=== PATIENT | male | born 1985 | race Caucasian/White ===

== ENCOUNTER 2021-02-25 18:00 | Emergency (ER) | payer OTHER, SELFPAY ==
[2021-02-25 18:15] VITALS: BP 125/90; PULSE 55; RESP 16; TEMP 37; O2SAT 99
--- NOTE | 2021-02-25 18:31 | ED.ABDPAIN ---
HPI - Abdominal Pain General Chief Complaint: Abdominal Pain Stated Complaint: abd pain Time Seen by Provider: 02/25/21 18:31 Source: patient and RN notes reviewed Mode of arrival: ambulatory Limitations: no limitations History of Present Illness HPI narrative: 35-year-old male presents to the [facility] with complaints of nausea and vomiting since eating lasagna, potato salad, green beans and carrot cake at lunch today. Patient denies any abdominal pain just feels constantly nauseous since eating. No treatment prior to arrival. Denies chest pain or shortness of breath. Denies any significant medical or surgical history Related Data Allergies Allergy/AdvReac Type Severity Reaction Status Date / Time Penicillins Allergy Unknown Unknown Verified 02/25/21 18:24 Review of Systems Review of Systems: All systems reviewed & are unremarkable except as noted in HPI and below Constitutional: Constitutional: Reports no additional constitutional complaints, Denies chills and Denies fever(s) Eyes: Eyes: Reports no additional eye complaints ENT: Reports system reviewed and no additional complaints, except as documented Cardiovascular: Cardiovascular: Reports no additional cardiovascular complaints, Denies chest pain and Denies dyspnea Respiratory: Respiratory: Reports no additional respiratory complaints, Denies cough, Denies dyspnea and Denies wheezing Gastrointestinal: Gastrointestinal: Reports as per HPI, Denies abdominal pain, Denies diarrhea, Reports nausea and Reports vomiting Musculoskeletal: Musculoskeletal: Reports no additional musculoskeletal complaints Integumentary/Breasts: Skin/Breast: Reports system reviewed and no additional complaints, except as docu Neurologic: Reports system reviewed and no additional complaints, except as documented Psychiatric: Psychiatric: Reports no additional psychiatric complaints Allergic/Immunologic: Allergic/Immunologic: Reports no additional allergic/immunologic complaints and Denies wheezing PMFSH Past Medical History Medical History (Updated 02/25/21 @ 19:23 by Elle Owens) No significant medical problems Surgical History Surgical History (Updated 02/25/21 @ 19:23 by Elle Owens) No history of previous surgery Comments At the time of my signature, I reviewed and agree with the nursing past medical, surgical, social, and family history. There is no relevant family history pertinent to the patient complaint. Exam Const: General: healthy appearing, no acute distress and alert Nutritional Appearance: well nourished Orientation/consciousness: patient oriented x3 Limitations: no limitations HENMT: Head: normal to inspection Ears: external ears normal, TM's normal bilaterally and EAC's normal Eyes: Pupils: Equal, round and reactive pupils present Neck: Neck: normal visual inspection, no lymphadenopathy and no meningeal signs Chest: Chest palpation & inspection: normal inspection of the chest Resp: Effort & Inspection: normal respiratory effort and no use of accessory muscles Auscultation: clear to auscultation bilaterally, no crackles, no rales, no rhonchi and no wheezes Cardio: Rate: regular rate Rhythm: regular rhythm GI: GI Palp: Yes Soft to palpation, No Tenderness to palpation present (GI), No Guarding due to palpation present (GI) and No Rebound tenderness present Back/Spine/Pelvis: Back: no CVA tenderness Skin: General skin exam: normal color Rashes: no rashes Wounds: no wounds Neuro: General: patient oriented x3, moves all extremities, no meningeal signs and no focal motor deficits Cranial nerves: Yes Equal, round and reactive pupils present Speech: normal speech Gait exam (Neuro): Normal gait present Extrem: General: normal to inspection Psych: Appearance: grossly normal and well kempt Mental Status: mental status grossly normal Affect: normal affect Attitude: cooperative Thought content: Yes Normal thought content present Course Course
== END 2021-02-25 18:50 | disposition home or self-care (01) ==
PROVIDERS: Emergency Provider Nurse Practitioner
DX: K52.9 Noninfective gastroenteritis and colitis, unspecified (principal)
CPT/HCPCS: 99213; G0463

== ENCOUNTER 2021-02-27 12:35 | Emergency (ER) | payer OTHER, SELFPAY ==
[2021-02-27 12:37] VITALS: BP 126/65; PULSE 100; RESP 17; TEMP 36.3; O2SAT 100
--- NOTE | 2021-02-27 14:20 | ED.GENADULT ---
HPI - General Adult General Chief complaint: Nausea/Vomiting/Diarrhea Stated complaint: vomiting Time Seen by Provider: 02/27/21 14:04 History of Present Illness HPI narrative: 35-year-old male with no significant past medical history presents to the emergency department for evaluation of nausea vomiting and epigastric pain. Patient states that his symptoms began on Wednesday. Patient states after he ate he had onset of nausea and vomiting. Patient states his emesis was primarily his food, denies blood in the emesis. Patient states symptoms did improve on Wednesday he states he followed a bland diet. Patient reports he did drink Gatorade and was feeling well enough to help a family member move some furniture. Patient states Wednesday night he did have tacos and then had onset of the epigastric burning and nausea again. Patient did not take any medications for the symptoms. Patient states that the symptoms did resolve approximately 7 AM this morning. Upon arrival to the department patient denies any current complaints. Patient does admit to smoking at least a pack of cigarettes a day. Patient denies frequent ibuprofen use. Related Data Allergies Allergy/AdvReac Type Severity Reaction Status Date / Time Penicillins Allergy Unknown Unknown Verified 02/27/21 12:39 Review of Systems Review of Systems: CONSTITUTIONAL: Denies fever, chills, or sweats. EYES: Denies visual changes, redness, or discharge. ENT: Denies rhinorrhea, congestion, sore throat, or otalgia. CARDIOVASCULAR: Denies chest pain, palpitations, or edema. RESPIRATORY: Denies cough or dyspnea. GASTROINTESTINAL: Burning epigastric pain with intermittent nausea and vomiting. Patient denies any complaint at this time. GENITOURINARY: Denies dysuria or hematuria. SKIN: Denies rash or itching. MUSCULOSKELETAL: Denies back pain, joint pain, or myalgia. NEUROLOGIC: Denies headache, numbness, or weakness. PSYCHIATRIC: Denies anxiety or depression. PMFSH Past Medical History Medical History (Updated 02/27/21 @ 14:29 by Moustapha Childers MD) No significant medical problems Surgical History Surgical History (Updated 02/25/21 @ 19:23 by Elle Owens) No history of previous surgery Exam Narrative: APPEARANCE: Well appearing, no pain in distress, well-nourished. HEAD: normocephalic, atraumatic. EYES: PERRLA/EOMI, conjunctivae clear. NECK: Supple. No adenopathy, no masses. RESPIRATORY: Airway patent, respirations nonlabored. Clear to auscultation bilaterally, no rales, rhonchi, wheezing. CARDIOVASCULAR: Regular rate and rhythm without murmurs rubs or gallops. ABDOMINAL: Soft, nontender, nondistended, normal bowel sounds MUSCULOSKELETAL: Moves all extremities. Strength/ROM intact, No edema, No calf tenderness. NEURO: Alert. Cranial nerves II through XII intact. Good gait. Good coordination SKIN: Warm, dry. Normal Color PSYCHIATRIC: Normal affect/mood. Course Course Emergency Course: Patient was upset on the plan for labs. Patient was also updated on treatment for home including following a bland diet, omeprazole for 2 weeks, limit his alcohol and limit NSAIDs. Patient was updated on the results of his labs. Labs are within normal limits. Once again patient was educated on treatment for home and on the importance of close follow-up with primary care physician and potentially with GI. Patient was clinically stable at time of discharge from emergency department. Vital Signs Vital signs: Vital Signs Temperature 97.3 F L 02/27/21 12:37 Pulse Rate 100 02/27/21 12:37 Respiratory Rate 17 02/27/21 12:37 Blood Pressure 126/65 02/27/21 12:37 Pulse Oximetry 100 02/27/21 12:37 Temperature 97.3 F L 02/27/21 12:37 Pulse Rate 100 02/27/21 12:37 Respiratory Rate 17 02/27/21 12:37 Blood Pressure 126/65 02/27/21 12:37 Pulse Oximetry 100 02/27/21 12:37 Medical Decision Making Vital Signs Vital Signs: Vital Signs Temperature 97.3 F L 01
[2021-02-27] MEDS: METOCLOPRAMIDE HCL INJ 10 MG/2 ML VIAL IV PUSH (14:21)
[2021-02-27] MEDS: SODIUM CHLORIDE 0.9% IV 1,000 ML 999 ML IV CONT (14:21)
[2021-02-27 14:23] LABS: Basophils Percent Auto 0.3 % (0.2-1.2); Hematocrit 44.6 % (42.0-52.0); Hemoglobin 15.4 g/dL (14.0-18.0); Immature Granulocyte Absolute 0.03 K/mm3 (0.00-0.031); Immature Granulocyte Percent A 0.3 % (0-0.5); Lymphocytes Absolute Auto 1.45 K/mm3 (0.9-3.2); Lymphocytes Percent Auto 13.5 % (18.3-44.2); Mean Corpuscular HGB Conc 34.5 g/dl (32-36); Mean Corpuscular Hemoglobin 30.4 pg (26-34); Mean Platelet Volume 9.9 fl (7.4-10.4); Neutrophils Absolute Auto 8.2 K/mm3 (1.3-6.7); Neutrophils Percent Auto 76.9 % (45.5-73.1); Platelet Count Result 259 k/mm3 (150-375); Red Blood Count 5.07 M/mm3 (4.6-6.20); Red Cell Distribution Width 12.5 % (11.5-14.5); White Blood Count 10.7 K/mm3 (4.5-10.0)
[2021-02-27 15:00] LABS: Alanine Aminotransferase 19 U/L (4-50); Albumin Level 4.3 g/dL (3.5-5.1); Alkaline Phosphatase 55 U/L (38-126); Anion Gap 10 mmol/L (8-16); Aspartate Amino Transferase 28 U/L (17-59); Bilirubin,Total 0.6 mg/dL (0.2-1.3); Blood Urea Nitrogen 9 mg/dL (9-20); Carbon Dioxide 28 mmol/L (22-30); Chloride 99 mmol/L (98-107); Estimated CRCL calculation 152 ml/min; Estimated Glomerular Filt Rate > 60; Glucose 113 mg/dL (65-110); Potassium 3.5 mmol/L (3.4-5.0); Sodium 137 mmol/L (137-145)
== END 2021-02-27 15:15 | disposition home or self-care (01) ==
LOC: ANHED 14:50
PROVIDERS: Emergency Provider Emergency Medicine; PCP Pediatrics
DX: K29.00 Acute gastritis without bleeding (principal); R11.2 Nausea with vomiting, unspecified
CPT/HCPCS: 36415; 80053; 85025; 96361; 96374; 99284; J2765; J7030

== ENCOUNTER 2023-05-25 05:59 | Emergency (ER) | payer OTHER, SELFPAY ==
[2023-05-25 07:10] VITALS: BP 123/68; PULSE 63; RESP 12; TEMP 36.7; O2SAT 99
[2023-05-25 07:34] LABS: Basophils Absolute Auto 0.1 K/mm3 (0.0-0.1); Basophils Percent Auto 0.7 % (0.2-1.2); Eosinophils Absolute Auto 0.2 K/mm3 (0-0.3); Eosinophils Percent Auto 2.4 % (0-4.4); Hematocrit 42.9 % (42.0-52.0); Hemoglobin 14.2 g/dL (14.0-18.0); Immature Granulocyte Absolute 0.02 K/mm3 (0.00-0.031); Immature Granulocyte Percent A 0.3 % (0-0.5); Lymphocytes Absolute Auto 1.43 K/mm3 (0.9-3.2); Lymphocytes Percent Auto 21.1 % (18.3-44.2); Mean Corpuscular HGB Conc 33.1 g/dl (32-36); Mean Corpuscular Hemoglobin 29.2 pg (26-34); Mean Corpuscular Volume 88.1 fl (80-100); Mean Platelet Volume 10.2 fl (7.4-10.4); Monocytes Absolute Auto 0.9 K/mm3 (0.1-0.6); Neutrophils Absolute Auto 4.2 K/mm3 (1.3-6.7); Neutrophils Percent Auto 62.5 % (45.5-73.1); Platelet Count Result 220 k/mm3 (150-375); Red Blood Count 4.87 M/mm3 (4.6-6.20); Red Cell Distribution Width 12.3 % (11.5-14.5); White Blood Count 6.8 K/mm3 (4.5-10.0)
[2023-05-25 07:41] LABS: Appearance Urine Clear (Clear); Bacteria Urine None Seen /hpf; Bilirubin Urine Negative (Negative); Blood Urine 1+ (Negative); Color Urine Yellow (Yellow); Glucose Urine UA Negative (Negative); Ketones Urine Negative (Negative); Leukocyte Esterase Ur Negative LEU/UL (Negative); Nitrate Urine Negative (Negative); Non Pathogenic Casts 0-2; Protein Urine Negative (Negative); Specific Grav Ur 1.008 (1.001-1.035); Squamous Epithelial Cell Urine None Seen /hpf (Few); Urobilinogen Urine 0.2 mg/dL (<2.0); WBC Urine 0-5 /hpf (0-3)
[2023-05-25 07:44] LABS: Ethanol < 10 mg/dL (<10)
[2023-05-25 07:49] LABS: Add Urine Microscopic? YES
[2023-05-25 07:50] LABS: Alanine Aminotransferase 18 U/L (6-50); Albumin Level 4.3 g/dL (3.5-5.1); Alkaline Phosphatase 42 U/L (38-126); Anion Gap 6 mmol/L (4-12); Aspartate Amino Transferase 24 U/L (17-59); Bilirubin,Total 0.6 mg/dL (0.2-1.3); Blood Urea Nitrogen 13 mg/dL (9-20); Calcium 9.3 mg/dL (8.4-10.2); Carbon Dioxide 29 mmol/L (22-30); Chloride 106 mmol/L (98-107); Estimated CRCL calculation 122 ml/min; Estimated Glomerular Filt Rate > 60; Glucose 106 mg/dL (65-110); Potassium 3.8 mmol/L (3.4-5.0); Sodium 141 mmol/L (137-145)
[2023-05-25 07:51] LABS: Amphetamine Screen Urine Negative (Negative); Barbiturate Screen Urine Negative (Negative); Benzodiazepines Screen Urine Negative (Negative); Cannabinoid Screen Urine Negative (Negative); Cocaine Screen Urine Negative (Negative); Methadone Screen Urine Negative (Negative); Opiate Screen Urine Negative (Negative); Phencyclidine Screen Urine Negative (Negative)
[2023-05-25 08:00] VITALS: BP 116/61; PULSE 59; RESP 12; TEMP 36.6; O2SAT 99
[2023-05-25 08:01] LABS: Troponin I < 0.012 ng/mL (0.000-0.034)
--- NOTE | 2023-05-25 08:28 | ED.GENADULT ---
HPI - General Adult General Chief complaint: Unspecified Stated complaint: i dont know; had a panic attack last week Time Seen by Provider: 05/25/23 07:06 History of Present Illness HPI narrative: Yr old with a history of anxiety disorder presents to the ER with complaints of palpitation, chest discomfort, shortness of breath, tingling sensation since this morning. Patient states that he had a similar episode she ago was seen at [facility] was told it could be marijuana related however since then he has stopped using marijuana patient states that he had the symptoms early this morning however by the time he came to the ER his symptoms resolved Related Data Allergies Allergy/AdvReac Type Severity Reaction Status Date / Time Penicillins Allergy Unknown Unknown Verified 05/25/23 06:02 Review of Systems Review of Systems: All systems reviewed & are unremarkable except as noted in HPI and below Constitutional: Constitutional: Reports no additional constitutional complaints Eyes: Eyes: Reports no additional eye complaints ENT: Reports system reviewed and no additional complaints, except as documented Cardiovascular: Cardiovascular: Reports as per HPI Respiratory: Respiratory: Reports no additional respiratory complaints Gastrointestinal: Gastrointestinal: Reports no additional gastrointestinal complaints Musculoskeletal: Musculoskeletal: Reports no additional musculoskeletal complaints Integumentary/Breasts: Skin/Breast: Reports system reviewed and no additional complaints, except as docu Neurologic: Reports system reviewed and no additional complaints, except as documented Psychiatric: Psychiatric: Reports as per HPI PMFSH Past Medical History Medical History No significant medical problems Surgical History Surgical History No history of previous surgery Exam Narrative: GENERAL: Well-appearing, well-nourished, and in no acute distress. HEAD: Normocephalic, atraumatic. EYES: PERRLA and EOMI. ENT: Nares clear, no rhinorrhea or epistaxis. Mucous membranes moist. NECK: Supple. CHEST: Clear to auscultation. No respiratory distress. HEART: Regular rate and rhythm. No murmur heard. Normal peripheral pulses. ABDOMEN: Soft, nontender, nondistended, normal active bowel sounds. EXTREMITIES: Normal range of motion. No edema. SKIN: Warm, dry, no rash. NEURO: No focal deficits. Alert and oriented x3. PSYCH: Normal mood and affect. Course Course Emergency Course: Patient comfortably resting on the stretcher in no discomfort. Reviewed his EKG and labs but were unremarkable. I did inform the patient and family about his lab work and EKG findings. Recommended him to follow up with his primary doctor Vital Signs Vital signs: Vital Signs Temperature 36.7 C 05/25/23 07:10 Pulse Rate 63 05/25/23 07:10 Respiratory Rate 12 05/25/23 07:10 Blood Pressure 123/68 05/25/23 07:10 Pulse Oximetry 99 05/25/23 07:10 Temperature 36.6 C 05/25/23 08:00 Pulse Rate 83 05/25/23 08:30 Respiratory Rate 14 05/25/23 08:30 Blood Pressure 130/75 05/25/23 08:30 Pulse Oximetry 99 05/25/23 08:30 Medical Decision Making Medical Records Medical records reviewed: Yes I reviewed the external patient's medical records. Vital Signs Vital Signs: Vital Signs Temperature 36.7 C 05/25/23 07:10 Pulse Rate 63 05/25/23 07:10 Respiratory Rate 12 05/25/23 07:10 Blood Pressure 123/68 05/25/23 07:10 Pulse Oximetry 99 05/25/23 07:10 Temperature 36.6 C 05/25/23 08:00 Pulse Rate 83 05/25/23 08:30 Respiratory Rate 14 05/25/23 08:30 Blood Pressure 130/75 05/25/23 08:30 Pulse Oximetry 99 05/25/23 08:30 Lab Data Lab results reviewed: Yes I reviewed the patient's lab results. 05/25/23 07:26 05/25/23 07:26 Labs: Lab Results
[2023-05-25 08:30] VITALS: BP 130/75; PULSE 83; RESP 14; O2SAT 99
--- NOTE | 2023-05-25 08:38 | ECG_ITS ---
Measurements Intervals [place] Rate: 58 P: 76 [place]: 176 QRS: 84 QRSD: 89 T: 77 QT: 417 Avg RR 1026 QTc: 414 QTcB 411 QTcF 413 INTERPRETATIVE STATEMENT SINUS BRADYCARDIA WITH SINUS ARRHYTHMIA BORDERLINE ECG SEE SCANNED COPY FOR SIGNATURE MTDD
== END 2023-05-25 09:04 | disposition home or self-care (01) ==
PROVIDERS: Emergency Provider Family Medicine; PCP Pediatrics
DX: F41.9 Anxiety disorder, unspecified (principal); R07.89 Other chest pain; R00.1 Bradycardia, unspecified
CPT/HCPCS: 36415; 80053; 80307; 81001; 84484; 85025; 93005; 99284

== ENCOUNTER 2023-07-08 12:26 | Emergency (ER) | payer SELFPAY ==
--- NOTE | 2023-07-08 12:28 | ED.ANXIETY ---
HPI - Anxiety General Chief Complaint: Anxiety Stated Complaint: Anxiety Attack Time Seen by Provider: 07/08/23 12:27 Source: patient Mode of arrival: ambulatory Limitations: no limitations History of Present Illness HPI narrative: Anshu is a 37-year-old male patient presenting to the clinic today with complaints of possible anxiety attack/palpitations. He reports this morning he was having some palpitations and was getting anxious about having the palpitations. He denied any chest pain, visual changes, headache, or shortness of breath associated with his initial palpitations however he then became anxious and started to feel overwhelmed. Had similar symptoms 3-4 days ago and took an Ativan and this helped his symptoms. Has been seen in 2 different emergency rooms over the past month for chest pain/palpitations likely due to anxiety.-states all the testing was negative for him having a heart attack. States he was giving Ativan is IV and this helped alleviate his symptoms. He reports that the symptoms have resolved prior to coming into the clinic today. Related Data Allergies Allergy/AdvReac Type Severity Reaction Status Date / Time Penicillins Allergy Unknown Unknown Verified 05/25/23 06:02 Review of Systems Review of Systems: Pertinent positives per HPI. Patient denies any fever, chills, rash, headache, visual changes, dizziness, cough, runny nose, sore throat, shortness of breath, chest pain, palpitations, nausea, vomiting, diarrhea, constipation, abdominal pain, or any urinary issues. PMFSH Past Medical History Medical History No significant medical problems Surgical History Surgical History No history of previous surgery Comments At the time of my signature, I reviewed and agree with the nursing past medical, surgical, social, and family history. There is no relevant family history pertinent to the patient complaint. Exam Narrative: General: Well-developed, well nourished, in no apparent distress Head: Normocephalic, atraumatic. Cardio: Regular rate and rhythm, s1 and s2 normal, no murmur appreciated. Resp: Clear to auscultation bilaterally, no rhonchi, rales, wheezing or rubs. Extremities: No deformity, no edema, no cyanosis, capillary refill less than 2 seconds, peripheral pulses palpable and strong. Integumentary: [place], warm, and dry, intact without lesion, no rashes. Course Course Emergency Course: Portions of this record may have been created with voice recognition software. Level of Care: Express Care Visit Vital Signs Vital signs: Vital Signs Temperature 36.6 C 07/08/23 12:36 Pulse Rate 77 07/08/23 12:36 Respiratory Rate 16 07/08/23 12:36 Blood Pressure 121/84 07/08/23 12:36 Pulse Oximetry 100 07/08/23 12:36 Temperature 36.6 C 07/08/23 12:36 Pulse Rate 77 07/08/23 12:36 Respiratory Rate 16 07/08/23 12:36 Blood Pressure 121/84 07/08/23 12:36 Pulse Oximetry 100 07/08/23 12:36 Vital signs reviewed MDM - Anxiety MDM Narrative Medical decision making narrative: At the time of visit patient is resting comfortably on the exam table. Patient appears to be nontoxic. EKG: EKG shows sinus rhythm with heart rate of 70 beats per minute without any ST elevation, depression, or T-wave inversion. No scanned in comparison EKGs available but last rating of the EKG showed sinus bradycardia with sinus arrhythmia which is now changed to sinus rhythm. Plan: Vital signs are stable and EKG shows normal sinus rhythm with heart rate. Denies any chest pain, shortness breath, or palpitations at this time. Past EKG report and lab work was reviewed. Recommend follow up with PCP to r/o further etiology/causes. Will send in Rx for hydroxyzine to see if this helps. Supportive measures were discussed with the patient and they voiced understanding dis
[2023-07-08 12:36] VITALS: BP 121/84; PULSE 77; RESP 16; TEMP 36.6; O2SAT 100
--- NOTE | 2023-07-08 12:42 | ECG_ITS ---
SEE SCANNED COPY FOR CONFIRMED REPORT MTDD
== END 2023-07-08 13:09 | disposition home or self-care (01) ==
PROVIDERS: Emergency Provider Nurse Practitioner Family
DX: R00.2 Palpitations (principal); F41.9 Anxiety disorder, unspecified
CPT/HCPCS: 93005; 99213; G0463

== ENCOUNTER 2024-04-29 15:50 | Emergency (ER) | payer SELFPAY ==
[2024-04-29 16:05] VITALS: BP 117/73; PULSE 81; RESP 20; TEMP 37.4; O2SAT 99
[2024-04-29] MEDS: FLUORESCEIN SOD 1 MG/STRIP RIGHT EYE (16:20)
[2024-04-29] MEDS: TETRACAINE HCL 0.5% OPHTH SOLN 4 ML BTL RIGHT EYE (16:20)
[2024-04-29] MEDS: DACRIOSE EYE IRRIGATION 118 ML BOTTLE RIGHT EYE (16:20)
--- NOTE | 2024-04-29 16:26 | ED_ITS ---
HPI - Eye Problem General Chief complaint: Eye Problems Stated complaint: Eyes Irritation Time Seen by Provider: 04/29/24 16:26 Source: patient Mode of arrival: ambulatory Limitations: no limitations History of Present Illness HPI Narrative: 38 yo M presents with c/o FB sensation to R eye. R eye painful with light sensitivity and tearing. Was cutting tree that fell down in yard with chainsaw. Was wearing sunglass but worried some wood got into eye. No vision change. All systems reviewed and negative except as noted above. Related Data Allergies Allergy/AdvReac Type Severity Reaction Status Date / Time Penicillins Allergy Unknown Unknown Verified 04/29/24 16:08 Review of Systems Review of Systems: CONSTITUTIONAL: Denies fever, chills, or sweats. EYES: Denies visual changes. Reports R eye redness, clear discharge. ENT: Denies rhinorrhea, congestion, sore throat, or otalgia. CARDIOVASCULAR: Denies chest pain, palpitations, or edema. RESPIRATORY: Denies cough or dyspnea. GASTROINTESTINAL: Denies abdominal pain, nausea, vomiting, or diarrhea. GENITOURINARY: Denies dysuria or hematuria. SKIN: Denies rash or itching. MUSCULOSKELETAL: Denies back pain, joint pain, or myalgia. NEUROLOGIC: Denies headache, numbness, or weakness. PSYCHIATRIC: Denies anxiety or depression. All other systems reviewed are negative, except as documented in HPI. [facility] Past Medical History Medical History No significant medical problems Surgical History Surgical History No history of previous surgery Social History Social History Substance use type: does not use Comments At time of signature, agree with nursing past medical, surgical, social and family history. There is no relevant family history pertinent to the presenting complaint. Exam Narrative: GENERAL: This is a well-nourished, well-developed patient, in no apparent distress. HEAD: normocephalic, atraumatic. EYES: PERRL. Left Sclera and conjunctiva clear/white. right eye erythematous, clear drainage. Topical anesthetic was instilled with good anesthesia using 1gtt of opth anesthetic agent (tetracaine). Fluorescein stain of the R eye was performed. Corneal abrasion 12 o'clock and 5'oclock. NO FB, ulcer or dendritic lesions. Upper lid was everted and no FB or lesions were noted. Normal saline irrigation eye solution was performed and the patient tolerated the procedure well, no adverse reaction or complications. EARS: External ears normal, auditory canals clear and without drainage, TMs normal without perforation. Hearing grossly intact. NOSE: External nose normal with no obvious nasal discharge, nares without redness, no rhinorrhea. THROAT: Mucous membranes moist, posterior pharynx clear. NECK: Neck supple, non-tender without lymphadenopathy, masses or thyromegaly. CARDIOVASCULAR: Regular rate and rhythm without murmurs, gallops, or rubs. RESPIRATORY: Clear to auscultation. Breath sounds equal bilaterally. No wheezes, rales, or rhonchi. SKIN: warm, Dry, intact with no suspicious lesions or rash, good texture and turgor. NEURO: awake, alert, and oriented to person, place and time. There were no obvious focal neurologic abnormalities. EXTREMITIES: No joint tenderness, effusion, or edema noted. Course Course Level of Care: Express Care Visit Vital Signs Vital signs: Vital Signs Temperature 37.4 C 04/29/24 16:05 Pulse Rate 81 04/29/24 16:05 Respiratory Rate 20 04/29/24 16:05 Blood Pressure 117/73 04/29/24 16:05 Pulse Oximetry 99 04/29/24 16:05 Oxygen Delivery Room Air 04/29/24 16:05 Temperature 37.4 C 04/29/24 16:05 Pulse Rate 81 04/29/24 16:05 Respiratory Rate 20 04/29/24 16:05 Blood Pressure 117/73 04/29/24 16:05 Pulse Oximetry 99 04/29/24 16:05 Oxygen Delivery Room Air 04/29/24 16:05 Reviewed MDM - Eye Problem MDM Narrative Medical decision making narrative: 2 small corneal abrasions noted to right eye. Prescribed erythromycin antibiotic ointment. Recommend follow up with industrial relations specialist if not improving. Please be advised this is a medical document. It is intended for [id number] communication. It is written in medical language and may contain unfamiliar abbreviations or verbiage. Medical documents are intended to carry relevant information, facts as evident, and the clinical opinion of the practitioner at the time of the encounter. This report may have been done utilizing a voice recognition system. Attempts have been made to correct errors. However, there may be uncorrected grammatical, spelling, and recognition errors present. The file time of this note does not necessarily represent the time of service. Discharge Plan Discharge Clinical Impression: Abrasion of cornea, right Qualifiers: Encounter type: initial encounter Qualified Code(s): S05.01XA - Injury of conjunctiva and corneal abrasion without foreign body, right eye, initial encounter Patient Disposition: Home, Self-Care Condition: Stable Instructions: Antibiotic Form, Erythromycin (Into the eye), Corneal Abrasion (ED) Additional Instructions: Use antibiotic ointment as prescribed. Read over discharge instructions on how to place erythromycin ointment. Take Tylenol or ibuprofen every 6-8 hours as needed for pain. May wear sunglasses to help with light sensitivity. Follow-up with industrial relations specialist if symptoms not improving. Patient Language: Amharic Prescriptions: New erythromycin 5 mg/gram (0.5 %) ointment 1 applic RIGHT EYE QID 10 Days Qty: 3.5 0RF No Action hydroxyzine pamoate [Vistaril] 25 mg capsule 25 mg PO TID PRN (Reason: anxiety) 30 Days Qty: 90 0RF Follow-up/Referrals: PHYSICIAN,SAUSAGE STUFFER [Primary Care Provider] - Time of Disposition: 16:24
== END 2024-04-29 16:35 | disposition home or self-care (01) ==
PROVIDERS: Emergency Provider Nurse Practitioner Family
DX: S05.01XA Injury of conjunctiva and corneal abrasion without foreign body, right eye, initial encounter (principal); X58.XXXA Exposure to other specified factors, initial encounter
CPT/HCPCS: 99213; A9270; G0463

== ENCOUNTER 2024-10-19 16:49 | Emergency (ER) | payer SELFPAY ==
--- NOTE | ~2024-10-19 | CT_ITS ---
EXAMINATION: CT BRAIN W/O DATE: 10/19/2024 18:33 INDICATION: Dizziness and lightheadedness TECHNIQUE: Computed tomography (CT) of the head was performed without intravenous contrast. The dose-length product was 681.00 mGy-cm. Automated exposure control and iterative reconstruction technique were employed. COMPARISON: 02/24/2017 FINDINGS: Normal brain parenchymal volume for age. Normal wiseman-white differentiation. No acute intracranial hemorrhage, infarction, mass or mass effect. No ventriculomegaly or midline shift. Midline sagittal images demonstrate a normal corpus callosum, craniovertebral junction and sella turcica. Basilar cisterns are patent. Paranasal sinuses and mastoids are pneumatized. No depressed skull fractures. IMPRESSION: 1. No acute intracranial abnormality. Reviewed, dictated and finalized at location O.
--- NOTE | ~2024-10-19 | XR_ITS ---
EXAMINATION: XR chest 2V 10/19/2024 18:02 INDICATION: Dizziness PROCEDURE: 2 view chest COMPARISON: 02/17/2015 FINDINGS: The lungs are clear. The cardiomediastinal silhouette is within normal limits. There are no pleural effusions. There is no pneumothorax suspected. There is a healed left clavicular fracture. IMPRESSION: 1: NO ACUTE CARDIOPULMONARY DISEASE. Reviewed, dictated and finalized at location O.
--- OUTSIDE RECORDS SUMMARY | 2024-10-19 16:51 | XMS_ITS | Clinical Summary ---
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 Name Role Phone None, Provider MD Primary Care Provider Unavaila ble Allergies Active Allergy Reactions Criticality Noted Date Comments Penicillins Unknown 05/17/2023 Medications No known medications Social History Tobacco Use Types Packs/Day Years Used Date Smoking Tobacco: Former Cigarettes Smokeless Tobacco: Never Tobacco Cessation:Counseling Given: Not Answered Alcohol Use Standard Drinks/Week Comments Not Currently 0 (1 standard drink = 0.6 oz pur e alcohol) Sex and Gender Information Value Date Recorded Sex Assigned at Not on file Legal Sex Male 12:28 PM CDT Gender Identity Not on file Sexual Orientation Not on file Last Filed Vital Signs Vital Sign Reading Time Taken Comments Blood Pressure 115/71 12/15/2023 11:50 AM CDT Pulse 81 12/15/2023 10:50 AM CDT Temperature 36.2 C (97.2 F) 12/15/2023 10:04 AM CDT Respiratory Rate 14 12/15/2023 10:50 AM CDT Oxygen Saturation 99% 12/15/2023 10:50 AM CDT Inhaled Oxygen Concentration - - Weight 72.6 kg (160 lb) 12/15/2023 10:04 AM CDT Height 182.9 cm (6') 12/15/2023 10:04 AM CDT Body Mass Index 21.7 12/15/2023 10:04 AM CDT Plan of Treatment Health Maintenance Due Date Last Done Comments Annual Physical 10/01/1990 DTaP, Tdap and Td Vaccines (6 - Tdap) 09/21/2001 09/20/2001, 10/03/1991, 03/09/1990, Additional history exists Hepatitis C 10/01/2005 HPV Vaccines (1 - 3-dose SCDM series) 10/01/2014 COVID-19 Vaccine ( season) 2023 Hepatitis B Vaccines Completed 11/12/1997, 02/01/1997, 01/01/1997 Meningococcal B Vaccine Aged Out No l onger eligible based on patient's age to complete this topic Meningococcal Vaccine Aged Out No ricky masood eligible based on patient's age to complete this topic Pneumococcal Vaccine: Pediatrics (0 to 5 Years) and At-Risk Patients (6 to 49 Years) Aged Out No longer eligible based on patient's age to complete this topic RSV Immunizations Under 20 Months Aged Out No longer eligible based on patient's age to complete this topic Care Teams Coordinate Measuring Machine Programmer Relationship Specialty Start Date End Date None, Provider, PCP - General UNKNOWN PHYSICIAN SPECIALTY 05/17/23
[2024-10-19 17:06] VITALS: BP 106/69; PULSE 78; RESP 16; TEMP 36.8; O2SAT 99
--- NOTE | 2024-10-19 17:08 | ECG_ITS ---
Test Date: 2024-10-19 17:20:22 Measurements Intervals [place] Rate: 74 P: 149 IN: 183 QRS: 145 QRSD: 89 T: 150 QT: 370 QTc: 413 Interpretive Statements CONSIDER LEAD DISPLACEMENT No previous ECG available for comparison Electronically Signed On 10-20-2024 12:16:29 CDT by Esteban Smiley M.D.
[2024-10-19 17:17] VITALS: BP 106/69; PULSE 78; RESP 16; TEMP 36.8; O2SAT 99
[2024-10-19 17:22] VITALS: PULSE 76
[2024-10-19 17:34] LABS: Hematocrit 41.9 % (42.0-52.0); Hemoglobin 13.8 g/dL (14.0-18.0); Immature Granulocyte Percent A 0.3 % (0-0.5); Lymphocytes Absolute Auto 1.91 K/mm3 (0.9-3.2); Mean Corpuscular HGB Conc 32.9 g/dl (32-36); Mean Corpuscular Hemoglobin 29.2 pg (26-34); Mean Corpuscular Volume 88.6 fl (80-100); Nucleated Red Blood Cells Absolute Auto 0.000 K/mm3 (0.0-0.012); Nucleated Red Blood Cells Perc 0.0 % (0.0-0.2); Platelet Count Result 243 k/mm3 (150-375); Red Blood Count 4.73 M/mm3 (4.6-6.20); White Blood Count 7.1 K/mm3 (4.5-10.0)
[2024-10-19 17:47] LABS: Alanine Aminotransferase 20 U/L (6-50); Albumin Level 4.1 g/dL (3.5-5.1); Alkaline Phosphatase 51 U/L (38-126); Anion Gap 7 mmol/L (4-12); Aspartate Amino Transferase 23 U/L (17-59); Bilirubin,Total 0.7 mg/dL (0.2-1.3); Blood Urea Nitrogen 10 mg/dL (9-20); Calcium 8.8 mg/dL (8.4-10.2); Carbon Dioxide 30 mmol/L (22-30); Chloride 100 mmol/L (98-107); Estimated CRCL calculation 120 ml/min; Estimated Glomerular Filt Rate > 60; Glucose 97 mg/dL (65-110); Potassium 3.6 mmol/L (3.4-5.0); Sodium 137 mmol/L (137-145); Total Protein 6.8 g/dL (6.3-8.2)
--- NOTE | 2024-10-19 18:10 | ED_ITS ---
HPI - Dizziness General Chief Complaint: Dizziness Stated Complaint: dizzy, near syncope Time Seen by Provider: 10/19/24 17:32 History of Present Illness HPI Narrative: Patient is a 39-year-old male who presents to the ER after experiencing dizziness when driving. He reports he got a car and started feeling ?off balance and faint. Patient also endorses throbbing and tingling in his hands. He denies any syncopal episode. Patient reports he has never had this experience in the past. He endorses a history of panic attacks and ear problems as a kid. Patient denies any chest pain, shortness of breath, or recent fevers. Related Data Allergies Allergy/AdvReac Type Severity Reaction Status Date / Time Penicillins Allergy Unknown Unknown Verified 10/19/24 17:22 Review of Systems 2 Review of Systems: All systems reviewed & are unremarkable except as noted in HPI and below PMFSH Past Medical History Medical History No significant medical problems Surgical History Surgical History No history of previous surgery Social History Social History Substance use type: does not use Exam 2 Narrative: GENERAL: Well appearing, well-nourished, non-toxic, in no acute distress. HEAD: Normocephalic, atraumatic. NECK: Supple. No adenopathy, no masses. RESPIRATORY: Airway patent, respirations nonlabored. Clear to auscultation bilaterally, no rales, rhonchi, wheezing. CARDIOVASCULAR: Regular rate and rhythm without murmurs, rubs, or gallops. Peripheral pulses 2+ and equal bilaterally. ABDOMINAL: Soft, nontender, nondistended, no hepatosplenomegaly. Normoactive BS. MUSCULOSKELETAL: Moves all extremities. Strength/ROM intact without gross deformities. SKIN: Warm, dry, normal color. No rashes. NEURO: A&O X3. Speech clear. Cranial nerves II-XII intact. No ataxic movements. PSYCHIATRIC: Appropriate mood and affect. Normal interaction. Course Vital Signs Vital signs: Vital Signs Temperature 36.8 C 10/19/24 17:06 Pulse Rate 78 10/19/24 17:06 Respiratory Rate 16 10/19/24 17:06 Blood Pressure 106/69 10/19/24 17:06 Pulse Oximetry 99 10/19/24 17:06 Temperature 36.8 C 10/19/24 17:17 Pulse Rate 77 10/19/24 19:17 Respiratory Rate 16 10/19/24 19:17 Blood Pressure 135/85 10/19/24 19:17 Pulse Oximetry 100 10/19/24 19:17 Oxygen Delivery Room Air 10/19/24 17:17 MDM - Dizziness MDM Narrative Medical decision making narrative: Patient is a 39-year-old male who presents to the ER after experiencing dizziness when driving. He reports he got a car and started feeling ?off balance and faint. Patient also endorses throbbing and tingling in his hands. He denies any syncopal episode. Patient reports he has never had this experience in the past. He endorses a history of panic attacks and ear problems as a kid. Patient denies any chest pain, shortness of breath, or recent fevers. Labs Ordered: CBC, CMP, UA, GC chlamydia, Trichomonas, TSH, UDS Imaging Ordered: Chest x-ray, CT brain Medications Ordered: Flagyl 2000 mg, meclizine 25 mg, ceftriaxone 500 mg IM Results: Pt's chest x-ray indicates The lungs are clear. The cardiomediastinal silhouette is within normal limits. There are no pleural effusions. There is no pneumothorax suspected. There is a healed left clavicular fracture. Pt's CT head indicates Normal brain parenchymal volume for age. Normal wiseman- white differentiation. No acute intracranial hemorrhage, infarction, mass or mass effect. No ventriculomegaly or midline shift. Midline sagittal images demonstrate a normal corpus callosum, craniovertebral junction and sella turcica. Basilar cisterns are patent. Paranasal sinuses and mastoids are pneumatized. No depressed skull fractures. Diagnosis: Urinary tract infection, concern for STDs, vertigo, cocaine abuse Patient Education/Shared MDM: Results of lab work and imaging shared with patient. Upon further discussion patient has concerns for STDs. Patient will be treated here in the ER since he has blood and white blood cells in his urine. He continues to endorse dizziness so he will be given meclizine. Patient also strongly advised to refrain from further cocaine use. Patient strongly advised to maintain hydration status upon discharge and follow- up with his PCP as soon as possible. He will be discharged home with a prescription for meclizine. Strict return precautions provided. Patient verbalized understanding and is in agreement with plan. Vital signs stable at time of discharge. All questions answered. Differential Diagnosis Differential diagnosis: Likely adverse reaction to drug, benign paroxysmal positional vertigo, orthostatic hypotension, cerebrovascular accident and transient cerebral ischemia Lab Data Attestation: I reviewed the patient's lab results. 10/19/24 17:27 10/19/24 17:27 Labs: Lab Results 10/19/24 10/19/24 10/19/24 Range/Units 17:27 18:24 18:25 WBC 7.1 (4.5-10.0) K/mm3 RBC 4.73 (4.6-6.20) M/mm3 Hgb 13.8 L (14.0-18.0) g/dL Hct 41.9 L (42.0-52.0) % MCV 88.6 (80-100) fl MCH 29.2 (26-34) pg MCHC 32.9 (32-36) g/dl RDW 12.8 (11.5-14.5) % Plt Count 243 (150-375) k/mm3 MPV 9.2 (7.4-10.4) fl Immature Gran % (Auto) 0.3 (0-0.5) % Neut % (Auto) 60.6 (45.5-73.1) % Lymph % (Auto) 26.9 (18.3-44.2) % [place] % (Auto) 11.5 H (2.6-8.5) % Eos % (Auto) 0.0 (0-4.4) % Baso % (Auto) 0.7 (0.2-1.2) % Lymph # (Auto) 1.91 (0.9-3.2) K/mm3 [place] # (Auto) 0.8 H (0.1-0.6) K/mm3 Eos # (Auto) 0.0 (0-0.3) K/mm3 Baso # (Auto) 0.1 (0.0-0.1) K/mm3 Abs Immat Gran (auto) 0.02 (0.00-0.031) K/mm3 Absolute Neuts (auto) 4.3 (1.3-6.7) K/mm3 Absolute Nucleated RBC 0.000 (0.0-0.012) K/mm3 Nucleated RBC % 0.0 (0.0-0.2) % Sodium 137 (137-145) mmol/L Potassium 3.6 (3.4-5.0) mmol/L Chloride 100 (98-107) mmol/L Carbon Dioxide 30 (22-30) mmol/L Anion Gap 7 (4-12) mmol/L BUN 10 (9-20) mg/dL Creatinine 0.68 L (0.7-1.3) mg/dL Estim Creat Clear Calc 120 ml/min Estimated GFR > 60 (59 - ) Glucose 97 (65-110) mg/dL Calcium 8.8 (8.4-10.2) mg/dL Total Bilirubin 0.7 (0.2-1.3) mg/dL AST 23 (17-59) U/L ALT 20 (6-50) U/L Alkaline Phosphatase 51 (38-126) U/L Total Protein 6.8 (6.3-8.2) g/dL Albumin 4.1 (3.5-5.1) g/dL TSH (Reflex) 0.639 (0.465-4.68) uIU/mL Urine Color Yellow (Yellow) Urine Appearance Clear (Clear) Urine pH 6.0 (5.0-9.0) Ur Specific [place] 1.023 (1.001-1.035) Urine Protein Trace (Negative) mg/dL Urine Glucose (UA) Negative (Negative) mg/dL Urine Ketones Trace H (Negative) mg/dL Ur Blood (Man) 2+ H (Negative) Urine Nitrate Negative (Negative) Urine Bilirubin Negative (Negative) Urine Urobilinogen 1.0 (<2.0) mg/dL Leukocyte Esterase Rfl Negative (Negative) ANUJ/UL Urine RBC 21-50 H (0-2) /hpf Urine WBC 6-10 H (0-3) /hpf Ur Squamous Epith Cells None seen (Few) /hpf Urine Bacteria None seen /hpf Urine Casts 0-2 Urine Opiates Screen Negative (Negative) Urine Methadone Screen Negative (Negative) Ur Barbiturates Screen Negative (Negative) Ur Phencyclidine Scrn Negative (Negative) Ur Amphetamine Screen Negative (Negative) U Benzodiazepines Scrn Negative (Negative) Urine Cocaine Screen Positive A (Negative) U Cannabinoids Screen Positive A (Negative) C. trachomatis (PCR) Pending Influenza A (RT-PCR) Negative (Negative) Influenza B (RT-PCR) Negative (Negative) N. gonorrhoeae (PCR) Pending RSV (RT-PCR) Negative (Negative) SARS-CoV-2 RNA (RT-PCR) Negative (Negative) T. vaginalis (PCR) Not detected (NOT DETECTE) Imaging Data Attestation: I personally reviewed and interpreted this imaging study as follows: Radiologist's impression: Impressions Chest X-Ray 10/19/24 18:17 IMPRESSION: 1: NO ACUTE CARDIOPULMONARY DISEASE. Head CT 10/19/24 18:35 IMPRESSION: 1. No acute intracranial abnormality. Discharge Plan Discharge Clinical Impression: Benign paroxysmal positional vertigo, Cocaine abuse, Concern about STD in male without diagnosis Patient Disposition: Home Condition: Stable Instructions: Antibiotic Form, Vertigo (ED) Additional Instructions: Please return to the ER with any worsening symptoms. Follow-up with primary care provider as soon as possible for further evaluation. Take all medications as prescribed, including regularly scheduled medications. Please refrain from using any illicit drugs. Complete your full dose of antibiotics as prescribed. Patient Language: Czech Prescriptions: New doxycycline monohydrate 100 mg capsule 100 mg PO BID Qty: 14 0RF meclizine 25 mg tablet 25 mg PO TID Qty: 30 0RF No Action hydroxyzine pamoate [Vistaril] 25 mg capsule 25 mg PO TID PRN (Reason: anxiety) 30 Days Qty: 90 0RF erythromycin 5 mg/gram (0.5 %) ointment 1 applic RIGHT EYE QID 10 Days Qty: 3.5 0RF Follow-up/Referrals: Spencer Rios DO [Physician, Family Practice] Referral Note: primary care provider PHYSICIAN,VETERINARY INSPECTOR [Primary Care Provider, Internal Medicine] Stand Alone Forms: Work/School Release IP Time of Disposition: 22:06
[2024-10-19] MEDS: SODIUM CHLORIDE 0.9% IV 1,000 ML 999 ML IV CONT (18:45)
[2024-10-19 18:53] LABS: Add Urine Microscopic? YES; Appearance Urine Clear (Clear); Glucose Urine UA Negative (Negative); Leukocyte Esterase Ur Negative LEU/UL (Negative); Nitrate Urine Negative (Negative); Non Pathogenic Casts 0-2; Specific Grav Ur 1.023 (1.001-1.035)
[2024-10-19 19:05] LABS: Cannabinoid Screen Urine Positive (Negative)
[2024-10-19 19:10] LABS: Influenza A QL RT-PCR Negative (Negative); Influenza B QL RT-PCR Negative (Negative); RSV RNA, RT-PCR Negative (Negative); SARS-CoV-2 RNA PCR Negative (Negative)
[2024-10-19 19:15] LABS: Thyroid Stimulating Hormone Reflex 0.639 uIU/mL (0.465-4.68)
[2024-10-19 19:17] VITALS: BP 135/85; PULSE 77; RESP 16; O2SAT 100
--- NOTE | 2024-10-19 19:17 | PC.NURSE ---
Assumed care of patient after receiving bedside report from FOUZIA Mejía @ [phone]
[2024-10-19] MEDS: MECLIZINE HCL 25 MG TABLET PO (21:04)
[2024-10-19] MEDS: LIDOCAINE 1% LOCAL INJ 10 ML VIAL (21:09)
[2024-10-19] MEDS: cefTRIAXone 1 GM VIAL 0.5 GM IM (21:09)
[2024-10-19 21:48] LABS: Trichomonas Vag PCR NOT DETECTED (NOT DETECTE)
== END 2024-10-19 22:20 | disposition home or self-care (01) ==
PROVIDERS: Emergency Medicine; Emergency Provider Registered Nurse
DX: H81.10 Benign paroxysmal vertigo, unspecified ear (principal); F14.10 Cocaine abuse, uncomplicated; Z11.3 Encounter for screening for infections with a predominantly sexual mode of transmission
CPT/HCPCS: 36415; 70450; 71046; 80053; 80307; 81001; 84443; 85025; 87086; 87491; 87591; 87637; 87661; 93005; 96360; 96372; 99284; A9270; J0696; J2003; J7030